=== PATIENT | male | born 1970 | race Caucasian/White ===

== ENCOUNTER → 2018-11-07 16:25 | Outpatient (CLI) | payer BC, SELFPAY ==
[2018-11-07 15:28] VITALS: BMI 36.8
[2018-11-07 17:45] LABS: Vitamin B12 496 pg/mL (211-911)
[2018-11-07 17:52] LABS: T4 Free Direct 1.05 ng/dL (0.76-1.46); Thyroid Stim Hormone (TSH) 0.72 uIU/mL (0.358-3.74)
== END ==
PROVIDERS: Family Provider Family Medicine; PCP Family Medicine; Referring Provider Nurse Practitioner Family; Visit Provider Nurse Practitioner Family
DX: I25.10 Atherosclerotic heart disease of native coronary artery without angina pectoris (principal); D35.00 Benign neoplasm of unspecified adrenal gland; R53.83 Other fatigue
CPT/HCPCS: 36415; 82607; 84439; 84443

== ENCOUNTER → 2018-11-20 06:28 | Outpatient (CLI) | payer BC, SELFPAY ==
[2018-11-07 15:28] VITALS: BMI 36.8
--- NOTE | 2018-11-20 10:14 | STRESSREP ---
Stress Test Report Exercise myocardial perfusion stress test. 48-year-old male with a history of coronary artery disease status post previous coronary artery stenting. Medications: Insulin, losartan, metoprolol, isosorbide, spironolactone, clopidogrel. Resting EKG demonstrates normal sinus rhythm with a rate of 92 bpm resting blood pressure 120/82 mmHg. The patient exercised according to regular Lizandro protocol for total duration of 9 minutes completing stage III of the Lizandro protocol. The maximum heart rate attained was 148 bpm which was 87% of maximum predicted heart rate the maximum workload was 10.1 metabolic equivalents. At rest there were no ST or T wave changes noted suggest ischemia peak exercise nonspecific ST-T wave changes were noted to suggest ischemia. The resting blood pressure 120/82 with a peak blood pressure 182/68 mmHg rate pressure product was 26,900. No clinical angina was noted. Myocardial perfusion protocol. 14.5 mCi of technetium 99m sestamibi was injected at rest. The patient exercised according to Lizandro protocol for total duration of 9 minutes at peak exercise 43.6 mCi of technetium 99m sestamibi was injected stress images were obtained stress and rest images were reconstructed and compared in the short axis vertical long and horizontal long axis. Gated images were also obtained next Perfusion SPECT analysis: Review of the stress images demonstrate normal uptake of tracer in all areas of the myocardium. The resting images similarly demonstrate normal uptake of tracer noted in all areas of the myocardium. No areas of reversibility are noted suggest ischemia. Gated SPECT analysis: The gated ejection fraction is noted to be 56%. There is mild anterior hypokinesis present. Conclusion: Normal exercise myocardial perfusion stress test at a high workload. No clinical angina noted. Preserved ejection fraction.
== END ==
LOC: CVS 06:31
PROVIDERS: Family Provider Family Medicine; PCP Family Medicine; Referring Provider Nurse Practitioner Family; Visit Provider Nurse Practitioner Family
DX: I25.10 Atherosclerotic heart disease of native coronary artery without angina pectoris (principal); Z95.1 Presence of aortocoronary bypass graft; R06.09 Other forms of dyspnea; E11.9 Type 2 diabetes mellitus without complications; E78.2 Mixed hyperlipidemia; I10 Essential (primary) hypertension
CPT/HCPCS: 78452; 93017; A9500; A4216

== ENCOUNTER → 2021-07-09 05:58 | Outpatient (CLI) | payer BC, SELFPAY ==
--- NOTE | 2021-07-09 06:03 | ECHOCS_ITS ---
Reason For Study: DYSPNEA Procedure This was a 2D Doppler, Color Flow transthoracic echocardiogram. The study was technically difficult. Due to body habitus,. Contrast injection was performed. Exam performed in department. Left Ventricle Normal LV size. Left ventricular systolic function is normal. The estimated ejection fraction is 55 %. Stage 1 diastolic dysfunction. No regional wall motion abnormalities noted. Right Ventricle Normal RV size. Normal systolic function. Atria Normal left atrium. Normal right atrium. Mitral Valve Normal mitral valve. Tricuspid Valve Normal tricuspid valve. Aortic Valve Trisinus/trileaflet aortic valve. Pulmonic Valve Normal pulmonic valve. Great Vessels Normal aortic root. The pulmonary artery is normal size. Normal inferior vena cava. Pericardium/Pleural No pericardial effusion. Medication Diluted definity 3.0ml given slow IV push to enhance endocardial definition. MMode/2D Measurements & Calculations LVIDd: 4.3 cm IVSd: 1.3 cm Ao root diam: 2.8 cm LVIDs: 2.9 cm LVPWd: 1.0 cm RVDd: 3.5 cm FS: 31.9 % LAV(MOD-bp): 42.2 ml LA A4 area: 17.0 cm2 LA dimension(2D): 3.8 cm LAV(MOD-bp) Indexed: 20.7 ml/m2 LAV(MOD-sp2): 42.7 ml LAV(MOD-sp4): 42.9 ml RA A4 area: 17.0 cm2 Time Measurements MV dec time: 0.20 sec Doppler Measurements & Calculations MV E max luis miguel: 79.5 cm/sec Lat Peak E' Luis Miguel: 11.4 cm/sec Med Peak E' Luis Miguel: 5.9 cm/sec MV A max luis miguel: 86.3 cm/sec E/E' lat: 7.0 E/E' med: 13.4 MV E/A: 0.92 Ao V2 max: 110.4 cm/sec LV V1 max: 83.9 cm/sec PA V2 max: 114.5 cm/sec Ao max P.9 mmHg LV V1 max P.8 mmHg ECHO/Echo Complete W/ Contrast Interpretation Summary Normal LV size. Left ventricular systolic function is normal. The estimated ejection fraction is 55 %. Stage 1 diastolic dysfunction. Ordering Physician: Galen^Trevor^^^ Referring Physician: Crow Gomez Performed By: Sonya Faulkner, NALINI, RVT
--- NOTE | 2021-07-09 10:32 | STRESSREP ---
Stress Test Report Exercise myocardial perfusion stress test. 51-year-old man with a history of non-ST elevation myocardial infarction. Stress protocol: Resting KG demonstrates normal sinus rhythm with a rate of 78 bpm resting blood pressure is 132/86 mmHg. The patient exercised according to regular Lizandro protocol for total duration of 9 minutes. The maximum heart rate attained was 129 bpm which was 77% of maximum predicted heart rate. The patient is noted to be on the beta-mary. Patient completed stage III of the Lizandro protocol. The maximum workload was 10.1 metabolic equivalents. At rest nonspecific ST changes were noted at peak exercise [address] depression was noted in leads II, III and aVF not meeting the criteria for ischemia. The peak blood pressure was 168/72 mmHg. Myocardial perfusion protocol. 12.2 mCi of technetium 99m sestamibi was injected at rest. The patient exercised according to regular Lizandro protocol and at peak exercise 36.0 mCi of technetium 99m sestamibi was injected stress images were obtained stress and rest images were reconstructed and compared in the short axis vertical long horizontal long axis. Gated images were also obtained per Perfusion SPECT analysis: Review of the stress images demonstrate normal uptake of tracer noted in all areas of the myocardium. The resting images similarly demonstrate normal uptake of tracer noted in all areas of the myocardium. No areas of reversibility are noted suggest ischemia no previous infarct is noted. Gated SPECT analysis: The gated ejection fraction is 58%. Conclusion: Normal exercise myocardial perfusion stress test at a high workload. Preserved ejection fraction.
== END ==
LOC: CVS 06:01
PROVIDERS: PCP Family Medicine; Referring Provider Internal Medicine Cardiovascular Disease; Visit Provider Internal Medicine Cardiovascular Disease
DX: R06.00 Dyspnea, unspecified (principal)
CPT/HCPCS: 78452; 93017; 93306; A9500; Q9957; A4216; C8929; J3490

== ENCOUNTER → 2021-08-05 10:00 | Outpatient (CLI) | payer BC, SELFPAY ==
[2021-08-05 11:09] LABS: Anion Gap 8 (5-15); BUN 21 mg/dL (7-18); BUN/Creat Ratio 14.9 RATIO (10-20); Calcium,Total 8.9 mg/dL (8.5-10.1); Chloride 102 mmol/L (98-107); Creatinine, Serum 1.41 mg/dL (0.70-1.30); EST Glomerular Filtration Rate 56 mL/min (>60); Est Glom Filt Rate - Afr Amer 68 mL/min (>60); Glucose 238 mg/dL (74-106); Potassium 4.3 mmol/L (3.5-5.1); Sodium Level 138 mmol/L (136-145)
== END ==
PROVIDERS: PCP Family Medicine; Referring Provider Nurse Practitioner Gerontology; Visit Provider Nurse Practitioner Gerontology
DX: I10 Essential (primary) hypertension (principal)
CPT/HCPCS: 36415; 80048

== ENCOUNTER → 2021-08-10 13:10 | Outpatient (CLI) | payer BC, SELFPAY ==
[2021-08-10 15:08] LABS: Absolute Lymphocyte Count 1.53 X10^3/uL (0.83-4.51); Absolute Neutrophil Count 6.2 X10^3/uL (2.0-7.7); Basophil# 0.06 X10^3/uL; Basophil% 0.7 % (0-1); Eosinophil# 0.02 X10^3/uL; Eosinophils% 0.2 % (0-5); Hematocrit 52.2 % (40-54); Hemoglobin 16.8 g/dL (13.0-16.5); Lymphocyte # 1.53 X10^3/ul (0.83-4.51); Lymphocyte % 17.4 % (19-41); Mean Corp Hgb Conc 32.2 g/dL (32-36); Mean Corpuscular Hgb 26.3 pg (27.0-32.0); Mean Corpuscular Volume 81.7 fL (80-94); Mean Platelet Vol. 9.8 fl (6.2-12.0); Monocyte# 0.92 X10^3/uL; Monocyte% 10.5 % (0-10); NRBC Flagged by Analyzer 0 % (0-5); Neutrophil # 6.24 X10^3/uL (2.7-7.7); Neutrophil % 70.9 % (47-70); Platelet Count 297 K/mm3 (150-450); RBC Distribution Width CV 14.5 % (11.6-14.6); RBC Distribution Width SD 42.2 fl (35.1-43.9); Red Blood Count 6.39 M/mm3 (4.6-6.2); White Blood Count 8.8 K/mm3 (4.4-11.0)
[2021-08-10 15:26] LABS: BNP,B-Type NATRIURETIC PEPTIDE 28.7 pg/mL (0-100)
[2021-08-10 15:53] LABS: Anion Gap 8 (5-15); BUN 24 mg/dL (7-18); BUN/Creat Ratio 17.9 RATIO (10-20); Calcium,Total 9.7 mg/dL (8.5-10.1); Chloride 100 mmol/L (98-107); Creatinine, Serum 1.34 mg/dL (0.70-1.30); EST Glomerular Filtration Rate 59 mL/min (>60); Est Glom Filt Rate - Afr Amer 72 mL/min (>60); Glucose 166 mg/dL (74-106); Potassium 4.1 mmol/L (3.5-5.1); Sodium Level 135 mmol/L (136-145)
== END ==
PROVIDERS: PCP Family Medicine; Referring Provider Nurse Practitioner Gerontology; Visit Provider Nurse Practitioner Gerontology
DX: I10 Essential (primary) hypertension (principal); R06.00 Dyspnea, unspecified
CPT/HCPCS: 36415; 80048; 83880; 85025

== ENCOUNTER → 2021-08-11 13:51 | Outpatient (CLI) | payer BC, SELFPAY ==
--- NOTE | 2021-08-11 13:53 | RAD_ITS ---
INDICATION: SOB with exertion EXAMINATION/TECHNIQUE: X-RAY - XR Chest 2 Views COMPARISON: 08/20/2015. FINDINGS: The lungs are clear. Sternal cerclage wires and vascular clips are present from a prior sternotomy and coronary artery bypass graft procedure (CABG). No pleural effusion or pneumothorax. No acute osseous abnormalities. RAD/Chest PA and Lateral IMPRESSION: No acute radiographic abnormalities. Electronically Signed: Crow Buenrostro MD at 23:53 EDT Tel , Service support ,
== END ==
LOC: RAD 13:52
PROVIDERS: PCP Family Medicine; Referring Provider Nurse Practitioner Gerontology; Visit Provider Nurse Practitioner Gerontology
DX: R06.00 Dyspnea, unspecified (principal)
CPT/HCPCS: 71046

== ENCOUNTER 2021-08-17 07:51 | Day surgery (SDC) | payer BC, SELFPAY ==
[2021-08-14 08:59] VITALS: BMI 34.7
--- NOTE | 2021-08-17 10:37 | CL.D_ITS ---
Patient Name: JUDY SCOTT Study Date: 08/17/2021 Performing: Trevor Aaron MD Ht: 66.14 inches 168 cm : 1970 Wt: 216.05 lbs 98 kg Age: 51 Gender: male BSA: 2.07 PROCEDURE(S) PERFORMED LD20-RST/COR/LV/CABG CLINICAL PROFILE AND INDICATIONS Indications: Worsening Angina Heart Failure: None Stress/Imaging Date: 07/09/2021tress Test with SPECT MPI: Negative CONCLUSIONS Severe [place] vessel coronary artery disease and patency of the saphenous vein graft to the right pos terior descending artery, patency of the DOSS to the LAD, patency of the radial graft to the obtuse m arginal branch with the occluded portion to the diagonal vessel. RECOMMENDATIONS Medical therapy for atrial fibrillation. We will increase Toprol to 100 mg a day DESCRIPTION OF PROCEDURE The patient arrived to the procedure lab. The risks and benefits of the procedure as well as a full d escription of our services here and current unavailability of surgical backup were fully explained to the patient and/or their significant other prior to the catheterization. The Timeout was completed, verifying the correct patient and procedure. The patient's procedural site was prepped and draped in the usual fashion. Local anesthetic was given subcutaneously to right groin region with Lidocaine 2%. Using a modified Seldinger technique, arterial access was obtained via the right femoral artery, a 5 Fr sheath was inserted. Left internal mammary artery graft to the LAD selective angiography was perf ormed in multiple views using a 5 Fr. IM catheter. Left Coronary Artery selective angiography was per formed in multiple views using a 5 Fr. JL4 catheter. Right Coronary Artery selective angiography was then performed in multiple views using a 5 Fr. 3DRC (Lito) catheter. Saphenous Vein graft to the RPDA selective angiography was performed in multiple views using a 5 Fr. AR MOD catheter . Left Ventriculography was performed in LONG projection using a 5 Fr. Pigtail catheter. LV to AO pull back pressures were then recorded.The arterial sheath was pulled and a Mynx closure device was deploy ed for hemostasis CORONARY ANGIOGRAPHY DOMINANCE: Right Dominant LEFT HEART ASSESSMENT Left Ventricular Ejection Fraction: by LV Gram 65 % Normal LV wall motion Normal Left Ventricular systolic function Patient noted to have paroxysms of atrial fibrillation LEFT MAIN: Short LEFT ANTERIOR DESCENDING ARTERY: OSTIAL LAD: is occluded CIRCUMFLEX ARTERY: OSTIAL CIRC: is occluded OM 1: Ostial - 90 % Stenosis RAMUS: 90 % Stenosis RIGHT CORONARY ARTERY: PROX RCA: is occluded GRAFTS: DOSS graft to the Mid LAD is patent Radial graft to the 1st Diagonal Is occluded but the portion to the obtuse marginal branch is patent with a anastomotic stenotic lesion of 60 to 70% and a very small graft Saphenous Vein graft to the RPDA Is patent Saphenous Vein graft to the RPDA Is patent with mild diffuse distal disease and collaterals to the le ft circumflex artery COMPLICATIONS No Complications PROCEDURE MEDICATIONS Versed 1 mg IV Versed 1 mg IV Fentanyl 50 mcg IV Versed 1 mg IV Versed 1 mg IV Versed 1 mg IV Oxygen: 2 L/min via nasal cannula SUMMARY OF HEMODYNAMIC DATA Time AIR REST ECG 08:16:28 ECG 09:08:47 AO 113/79 (91) SA 09:34:58 LV 102/14, 20 09:52:48 LV 109/11, 15 09:52:55 LV 109/15, 18 09:53:42 LVp 92/9, 16 09:53:50 AOp 105/59 (75) 09:53:56 AO 110/63 (77) 09:53:57 RM AIR REST 10:31:41 Signed By Trevor Aaron MD On 08/17/2021 10:36:57 Trevor Aaron MD
== END 2021-08-17 13:15 | disposition home or self-care (01) ==
PROVIDERS: PCP Family Medicine; Referring Provider Internal Medicine Cardiovascular Disease; Visit Provider Internal Medicine Cardiovascular Disease
DX: I25.10 Atherosclerotic heart disease of native coronary artery without angina pectoris (principal); I10 Essential (primary) hypertension; I25.2 Old myocardial infarction; E11.9 Type 2 diabetes mellitus without complications; E78.5 Hyperlipidemia, unspecified; G47.33 Obstructive sleep apnea (adult) (pediatric); Z95.1 Presence of aortocoronary bypass graft; Z79.4 Long term (current) use of insulin; Z79.82 Long term (current) use of aspirin; Z79.02 Long term (current) use of antithrombotics/antiplatelets; Z79.899 Other long term (current) drug therapy
CPT/HCPCS: 93005; 93459; 99152; 99153; C1760; J7040; Q9967; C1769

== ENCOUNTER → 2021-08-18 11:49 | Outpatient (CLI) | payer BC, SELFPAY | PROVIDERS: PCP Family Medicine; Referring Provider Internal Medicine Cardiovascular Disease; Visit Provider Internal Medicine Cardiovascular Disease | DX: I48.0 Paroxysmal atrial fibrillation (principal); D35.00 Benign neoplasm of unspecified adrenal gland; E11.9 Type 2 diabetes mellitus without complications; E78.5 Hyperlipidemia, unspecified; G47.33 Obstructive sleep apnea (adult) (pediatric); I10 Essential (primary) hypertension; I25.10 Atherosclerotic heart disease of native coronary artery without angina pectoris; R06.00 Dyspnea, unspecified; Z95.1 Presence of aortocoronary bypass graft; Z95.5 Presence of coronary angioplasty implant and graft; R07.89 Other chest pain | CPT/HCPCS: 93225; 93226 ==

== ENCOUNTER → 2021-08-31 | Outpatient (CLI) | payer BC, SELFPAY ==
[2021-08-31 14:06] LABS: D-Dimer Quantitative (DVT/PE) <= 0.27 FEU/ug/m (0.27-0.49)
== END | disposition home or self-care (01) ==
LOC: LABSPEC 13:21
PROVIDERS: PCP Family Medicine; Visit Provider Nurse Practitioner Primary Care
DX: R06.02 Shortness of breath (principal)
CPT/HCPCS: 85379

== ENCOUNTER → 2022-06-15 | Outpatient (CLI) | payer BC, SELFPAY ==
[2022-06-15 16:57] LABS: Absolute Lymphocyte Count 1.81 X10^3/uL (0.83-4.51); Absolute Neutrophil Count 4.2 X10^3/uL (2.0-7.7); Basophil# 0.03 X10^3/uL; Basophil% 0.4 % (0-1); Eosinophil# 0.06 X10^3/uL; Eosinophils% 0.9 % (0-5); Hematocrit 48.6 % (40-54); Hemoglobin 15.6 g/dL (13.0-16.5); Lymphocyte # 1.81 X10^3/ul (0.83-4.51); Lymphocyte % 26.4 % (19-41); Mean Corp Hgb Conc 32.1 g/dL (32-36); Mean Corpuscular Volume 80.9 fL (80-94); Mean Platelet Vol. 9.6 fl (6.2-12.0); Monocyte# 0.71 X10^3/uL; Monocyte% 10.3 % (0-10); NRBC Flagged by Analyzer 0 % (0-5); Neutrophil # 4.22 X10^3/uL (2.7-7.7); Neutrophil % 61.6 % (47-70); Platelet Count 234 K/mm3 (150-450); RBC Distribution Width SD 43.6 fl (35.1-43.9); Red Blood Count 6.01 M/mm3 (4.6-6.2); White Blood Count 6.9 K/mm3 (4.4-11.0)
[2022-06-15 17:12] LABS: Anion Gap 6 (5-15); BUN 18 mg/dL (7-18); BUN/Creat Ratio 14.3 RATIO (10-20); Calcium,Total 9.9 mg/dL (8.5-10.1); Chloride 107 mmol/L (98-107); Creatinine, Serum 1.26 mg/dL (0.70-1.30); EST Glomerular Filtration Rate 63 mL/min (>60); Est Glom Filt Rate - Afr Amer 77 mL/min (>60); Glucose 125 mg/dL (74-106); Sodium Level 141 mmol/L (136-145)
[2022-06-15 17:15] LABS: BNP,B-Type NATRIURETIC PEPTIDE 75.8 pg/mL (0-100)
== END | disposition home or self-care (01) ==
LOC: LAB 16:44
PROVIDERS: PCP Family Medicine; Referring Provider Nurse Practitioner Gerontology; Visit Provider Nurse Practitioner Gerontology
DX: R06.00 Dyspnea, unspecified (principal)
CPT/HCPCS: 36415; 80048; 83880; 85025

== ENCOUNTER → 2022-06-21 | Outpatient (CLI) | payer BC, SELFPAY | END | disposition home or self-care (01) | PROVIDERS: PCP Family Medicine; Referring Provider Nurse Practitioner Gerontology; Visit Provider Nurse Practitioner Gerontology | DX: I48.0 Paroxysmal atrial fibrillation (principal) | CPT/HCPCS: 93225; 93226 ==

== ENCOUNTER → 2023-08-09 | Outpatient (CLI) | payer BC, SELFPAY ==
--- NOTE | 2023-08-09 07:56 | ECHOCS_ITS ---
Reason For Study: Afib Procedure This was a 2D Doppler, Color Flow transthoracic echocardiogram. The study was technically difficult. Contrast injection was performed. Exam performed in department. Left Ventricle Normal left ventricle. Left ventricular systolic function is normal. The estimated ejection fraction is 60 %. No regional wall motion abnormalities noted. Right Ventricle Normal size and thickness. Normal systolic function. Atria Normal left atrium. Normal right atrium. Great Vessels Normal aortic root. Pericardium/Pleural No pericardial effusion. Medication 22 gauge I.V. with prn adaptor inserted into left arm. Diluted definity 2.5ml given slow IV push to enhance endocardial definition. MMode/2D Measurements & Calculations LVIDd: 4.8 cm IVSd: 1.1 cm Ao root diam: 3.3 cm LVIDs: 3.4 cm LVPWd: 1.1 cm LA dimension: 4.1 cm FS: 28.8 % LAV(MOD-bp): 68.4 ml LA A4 area: 20.5 cm2 RA A4 area: 14.7 cm2 LAV(MOD-bp) Indexed: 32.5 ml/m2 LAV(MOD-sp2): 66.0 ml LAV(MOD-sp4): 59.0 ml TAPSE: 0.63 cm Doppler Measurements & Calculations MV E max jayne: 86.0 cm/sec MV V2 max: 100.5 cm/sec Ao V2 max: 100.7 cm/sec MV max P.1 mmHg Ao max P.1 mmHg MV V2 mean: 50.8 cm/sec MV mean P.4 mmHg MV V2 VTI: 18.2 cm LV V1 max: 84.6 cm/sec PA V2 max: 94.4 cm/sec LV V1 max P.9 mmHg ECHO/Echo Complete W/ Contrast Interpretation Summary Normal left ventricle. Left ventricular systolic function is normal. The estimated ejection fraction is 60 %. Contrast injection was performed. The study was technically limited. Ordering Physician: Lise Samson Referring Physician: Lise Samson Performed By: Chris Horn RCS
== END | disposition home or self-care (01) ==
PROVIDERS: PCP Family Medicine; Referring Provider Physician Assistant Medical; Visit Provider Physician Assistant Medical
DX: I48.0 Paroxysmal atrial fibrillation (principal)
CPT/HCPCS: 93306; Q9957; A4216; C8929; J0153

== ENCOUNTER → 2024-06-19 | Outpatient (CLI) | payer BC, SELFPAY ==
--- NOTE | 2024-06-19 07:44 | ECHOCS_ITS ---
Reason For Study: DILATED CARDIOMYOPATHY Procedure This was a 2D Doppler, Color Flow transthoracic echocardiogram. The study was technically difficult. Contrast injection was performed. Exam performed in department. Left Ventricle Normal LV size. The left ventricular ejection fraction is 60 %. Stage 2 diastolic dysfunction. No regional wall motion abnormalities noted. Right Ventricle Normal RV size. ICD or pacer leads identified within the right ventricle. Normal systolic function. Atria Normal left atrium. Normal right atrium. Mitral Valve There is mild mitral annular calcification. Tricuspid Valve Normal tricuspid valve. Aortic Valve Trisinus/trileaflet aortic valve. Mild focal aortic valve calcification. Medication 22 gauge I.V. with prn adaptor inserted into left arm. Diluted definity 2ml given slow IV push to enhance endocardial definition. MMode/2D Measurements & Calculations LVIDd: 4.1 cm IVSd: 1.6 cm LVOT diam: 2.0 cm LVIDs: 2.9 cm LVPWd: 1.00 cm LVOT area: 3.1 cm2 RVDd: 3.5 cm FS: 29.0 % Ao root diam: 3.1 cm LAV(MOD-bp): 41.0 ml LVAd ap4: 33.7 cm2 LAV(MOD-bp) Indexed: 19.9 ml/m2 LVLd ap4: 7.9 cm LAV(MOD-sp2): 34.2 ml EDV(MOD-sp4): 120.9 ml LAV(MOD-sp4): 46.5 ml EDV(sp4-el): 121.7 ml LVAs ap4: 25.5 cm2 LVLs ap4: 7.8 cm ESV(MOD-sp4): 69.4 ml ESV(sp4-el): 70.7 ml EF(MOD-sp4): 42.6 % EF(sp4-el): 42.0 % SV(MOD-sp4): 51.5 ml SV(MOD-sp2): 56.8 ml LVAd ap2: 36.8 cm2 LVLd ap2: 8.4 cm EDV(MOD-sp2): 133.0 ml EDV(sp2-el): 136.6 ml LVAs ap2: 27.1 cm2 LVLs ap2: 8.0 cm ESV(MOD-sp2): 76.2 ml ESV(sp2-el): 78.1 ml EF(MOD-sp2): 42.7 % SV(sp4-el): 51.1 ml LA A4 area: 18.4 cm2 LA dimension(2D): 4.2 cm TAPSE: 1.3 cm RA A4 area: 15.4 cm2 Time Measurements MV dec time: 0.14 sec Doppler Measurements & Calculations MV E max luis miguel: 95.2 cm/sec Lat Peak E' Luis Miguel: 6.3 cm/sec Med Peak E' Luis Miguel: 5.2 cm/sec MV A max luis miguel: 71.1 cm/sec E/E' lat: 15.1 E/E' med: 18.2 MV E/A: 1.3 MV dec slope: 685.1 cm/sec2 Ao V2 max: 120.1 cm/sec LV V1 max: 97.7 cm/sec Ao max P.8 mmHg LV V1 max P.8 mmHg Ao V2 mean: 80.1 cm/sec LV V1 mean P.1 mmHg Ao mean P.0 mmHg LV V1 mean: 68.1 cm/sec Ao V2 VTI: 25.8 cm LV V1 VTI: 21.6 cm AV (velocity ratio): 0.84 YONATAN(I,D): 2.6 cm2 YONATAN(V,D): 2.5 cm2 SV(LVOT): 67.5 ml PA V2 max: 101.1 cm/sec PA max PG (full): 2.8 mmHg ECHO/Echo Complete W/ Contrast Interpretation Summary Normal LV size. The left ventricular ejection fraction is 60 %. ICD or pacer leads identified within the right ventricle. There is mild mitral annular calcification. Mild focal aortic valve calcification. Stage 2 diastolic dysfunction. Contrast injection was performed. Ordering Physician: Trevor Aaron Referring Physician: Trevor Aaron MD Performed By: Dalila Serrato RDCS
== END | disposition home or self-care (01) ==
LOC: CVS 07:44
PROVIDERS: PCP Family Medicine; Referring Provider Internal Medicine Cardiovascular Disease; Visit Provider Internal Medicine Cardiovascular Disease
DX: I48.0 Paroxysmal atrial fibrillation (principal); E11.9 Type 2 diabetes mellitus without complications; Z95.810 Presence of automatic (implantable) cardiac defibrillator; I25.10 Atherosclerotic heart disease of native coronary artery without angina pectoris; Z95.5 Presence of coronary angioplasty implant and graft; Z95.1 Presence of aortocoronary bypass graft; I10 Essential (primary) hypertension; E78.5 Hyperlipidemia, unspecified; G47.33 Obstructive sleep apnea (adult) (pediatric); R06.00 Dyspnea, unspecified; R53.83 Other fatigue
CPT/HCPCS: 93306; Q9957; A4216; C8929